=== PATIENT | male | born 1965 | race Caucasian/White ===

== ENCOUNTER 2022-08-10 12:04 | Emergency (ER) | payer BC, OTHER ==
[2022-08-10] MEDS ORDERED: Bacitracin 1 PK ONE (12:24)
[2022-08-10] MEDS ORDERED: Sulfameth/Trimethoprim DS 800-160mg TAB ONE (12:24)
== END 2022-08-10 12:32 | disposition home or self-care (01) ==
LOC: BURERS 12:04
DX: S61.411A Laceration without foreign body of right hand, initial encounter (principal); F17.220 Nicotine dependence, chewing tobacco, uncomplicated; W45.8XXA Other foreign body or object entering through skin, initial encounter
CPT/HCPCS: 99282